=== PATIENT | female | born 1995 | race Caucasian/White ===

== ENCOUNTER 2017-03-25 13:46 | Emergency (ER) | payer BC ==
[~2017-03-25] VITALS: Ht 152.4 cm; Wt 77.3 kg
[~2017-03-25 13:46] MED LIST: TESSALON P100 MG/CAP
[2017-03-25 14:01] VITALS: BP 123/70; TEMP 99.5
[2017-03-25] MEDS ORDERED: SPRINTEC 35 MCG1 TAB PO (14:06)
[2017-03-25 16:23] VITALS: PULSE 80
== END 2017-03-25 16:24 | disposition home or self-care (01) ==
LOC: COL.ER 13:46
DX: K21.9 Gastro-esophageal reflux disease without esophagitis (principal)